=== PATIENT | male | born 1945 | race Caucasian/White ===

== ENCOUNTER 2016-11-10 12:54 | Emergency (ER) | payer MEDICARE, OTHER ==
[2016-11-10 13:39] VITALS: BP 150/76; TEMP 96.9; O2SAT 97
--- NOTE | 2016-11-10 14:31 | RAD ---
EXAM DESCRIPTION: X-RAY Lumbar Spine - Five views CLINICAL HISTORY: Mid and lower back pain of acute onset COMPARISON: None. TECHNIQUE: Five views of the lumbar spine. FINDINGS: There is no loss of the vertebral body height. There is mild reduction in the intervertebral disc space heights at L4/L5 and L5/S1 levels. Note is made of mild bilateral facet arthropathy at these 2 levels. These findings are suggestive of underlying degenerative change. The paravertebral soft tissues are unremarkable. There is no spondylolisthesis or spondylolysis. The lumbosacral junction is unremarkable. The bilateral neural foraminae are widely patent. IMPRESSION: Degenerative changes in the lower lumbar spine, as described above. Electronically signed by: Gareth Torres MD 11/10/2016 14:29
--- NOTE | 2016-11-10 14:33 | RAD ---
EXAM DESCRIPTION: X-RAY Thoracic Spine CLINICAL HISTORY: Acute mid and low back pain. COMPARISON: None. TECHNIQUE: 3.0 views of the thoracic spine. FINDINGS: There is no loss of the vertebral body height. Intervertebral disc spaces in the thoracic spine are relatively well maintained Note is made of anterior and posterior osteophyte formation along with reduction in the intervertebral disc space height at C5/C6 and C6/C7 levels suggestive of underlying degenerative change in the evaluated lower cervical spine. The paravertebral soft tissues are unremarkable. The cervicothoracic and the thoracolumbar junctions are intact. IMPRESSION: Unremarkable thoracic spine. Note is made of anterior and posterior osteophyte formation along with reduction in the intervertebral disc space height at C5/C6 and C6/C7 levels suggestive of underlying degenerative change in the evaluated lower cervical spine. Electronically signed by: Gareth Torres MD 11/10/2016 14:31
--- NOTE | 2016-11-10 16:51 | ED.PDOC ---
History of Present Illness - General Chief Complaint: Back Pain or Injury Stated Complaint: left sided back pain Time Seen by Provider: 11/10/16 13:09 Source: patient, RN notes reviewed, Vital Signs reviewed - History of Present Illness Initial Comments: This 71 y/o gentleman started having back pain 2 days ago. It is at the bottom of his thoracic spine. He denies any injury. He denies any dysuria. It hurts with movement, but it feels very deep to him. Timing/Duration: getting worse, other - 2 days Quality/Severity: moderate, sharpness Back Pain Location: paraspinous muscles Method of Injury/Prior Injury: unknown Improving Factors: rest Worsening Factors: movement Associated Symptoms: denies symptoms Allergies/Adverse Reactions: Allergies Penicillins Allergy (Verified 11/10/16 13:39) Home Medications: Ambulatory Orders Ascorbic Acid [Vitamin C] 1,000 mg PO DAILY 08/22/14 Aspirin [Baby Aspirin] 81 mg PO BID 08/22/14 Carvedilol 12.5 mg PO BID 08/22/14 Lisinopril [Prinivil] 5 mg PO DAILY 08/22/14 Simvastatin 40 mg PO BEDTIME 08/22/14 Naproxen [Naprosyn] 500 mg PO BID #30 tab 11/10/16 Omeprazole 20 mg PO DAILY 11/10/16 tiZANidine [Zanaflex] 4 mg PO TID PRN #30 tab 11/10/16 Review of Systems - Review of Systems Constitutional: States: no symptoms reported EENTM: States: no symptoms reported Respiratory: States: no symptoms reported Cardiology: States: no symptoms reported Gastrointestinal/Abdominal: States: no symptoms reported Genitourinary: States: no symptoms reported Musculoskeletal: States: muscle pain Skin: States: no symptoms reported Neurological: States: no symptoms reported Endocrine: States: no symptoms reported Hematologic/Lymphatic: States: no symptoms reported Unable to Obtain Due To: condition Past Medical History (General) - Patient Medical History Hx Cardiac Disorders: Yes Hx Hypertension: Yes Hx Diabetes: No Surgical History: coronary bypass surgery - Vaccination History Hx Influenza Vaccination: Yes Hx Pneumococcal Vaccination: Yes - Social History Hx Tobacco Use: No Family Medical History - Family History Father Family History: Unknown Living Status: Physical Exam - Physical Exam General Appearance: Alert, No apparent distress - unless he moves certain directions Eyes, Ears, Nose, Throat Exam: normal ENT inspection Cardiovascular/Respiratory: regular rate, rhythm, no M/R/G, normal peripheral pulses, no JVD, normal breath sounds, no respiratory distress Gastrointestinal/Abdominal: normal bowel sounds, non tender, soft, no organomegaly, no pulsatile mass Back Exam: no vertebral tenderness, muscle spasm - left paravertebral from T10 to L2 Extremity Exam: no evidence of injury, normal range of motion, no pedal edema Neurologic: no motor/sensory deficits, alert, normal mood/affect, oriented x 3 Skin Exam: normal color, warm/dry Progress - Results/Orders Results/Orders: 11/10/16 13:35 Temperature 96.9 F L Pulse Rate [ 87 Right Brachial] Respiratory 20 Rate Blood Pressure 150/76 [Right Arm] O2 Sat by Pulse 97 Oximetry Laboratory Results Urine Color Yellow (Yellow) 11/10/16 14:36 Urine Appearance Clear (Clear) 11/10/16 14:36 Urine pH 6.5 (4.5-7.8) 11/10/16 14:36 Ur Specific [place] 1.010 (1.005-1.030) 11/10/16 14:36 Urine Protein Negative mg/dL 11/10/16 14:36 Urine Glucose (UA) Negative mg/dL (Negative) 11/10/16 14:36 Urine Ketones Negative mg/dL (NEGATIVE) 11/10/16 14:36 Urine Blood Trace-intact (Negative) H 11/10/16 14:36 Urine Nitrite Negative 11/10/16 14:36 Urine Bilirubin Negative (NEGATIVE) 11/10/16 14:36 Urine Urobilinogen 0.2 mg/dL (0.2-1.0) 11/10/16 14:36 Ur Leukocyte Esterase Negative (Negative) 11/10/16 14:36 Urine RBC 1-3 /hpf 11/10/16 14:36 Urine WBC 0-1 /hpf 11/10/16 14:36 Ur Epithelial Cells 0 /hpf 11/10/16 14:36 Urine Bacteria 0 11/10/16 14:36 - EKG/XRAY/CT XRAY: t-spine, l-spine Xray Comments: No acute process Departure - Departure Clinical Impression: Muscle spasm of back Time of Disposition: 16:59 Disposition: Discharge to Home or Self Care Condition: Excellent Departure Forms: ED Discharge - Pt. Copy, Patient Portal Self Enrollment Instructions: DI for Low Back Pain Diet: resume usual diet Prescriptions: Naproxen [Naprosyn] 500 mg PO BID #30 tab tiZANidine [Zanaflex] 4 mg PO TID PRN #30 tab PRN Reason: Muscle Spasms Home Medications: Ambulatory Orders Ascorbic Acid [Vitamin C] 1,000 mg PO DAILY 08/22/14 Aspirin [Baby Aspirin] 81 mg PO BID 08/22/14 Carvedilol 12.5 mg PO BID 08/22/14 Lisinopril [Prinivil] 5 mg PO DAILY 08/22/14 Simvastatin 40 mg PO BEDTIME 08/22/14 Naproxen [Naprosyn] 500 mg PO BID #30 tab 11/10/16 Omeprazole 20 mg PO DAILY 11/10/16 tiZANidine [Zanaflex] 4 mg PO TID PRN #30 tab 11/10/16
== END 2016-11-10 17:14 | disposition home or self-care (01) ==
LOC: ER 12:54
DX: M62.830 Muscle spasm of back (principal); I10 Essential (primary) hypertension; Z79.82 Long term (current) use of aspirin; Z79.899 Other long term (current) drug therapy; Z88.0 Allergy status to penicillin; Z95.1 Presence of aortocoronary bypass graft

== ENCOUNTER → 2017-01-07 | Outpatient (CLI) | payer MEDICARE, OTHER | LOC: GMAB 10:26 | PROVIDERS: ATTEND Family Medicine | DX: I10 Essential (primary) hypertension (principal); Z12.5 Encounter for screening for malignant neoplasm of prostate | CPT/HCPCS: 84443; G0103 ==

== ENCOUNTER → 2018-01-13 | Outpatient (CLI) | payer MEDICARE, OTHER | LOC: GMAB 10:26 | PROVIDERS: ATTEND Family Medicine | DX: I10 Essential (primary) hypertension (principal); Z12.5 Encounter for screening for malignant neoplasm of prostate | CPT/HCPCS: 84443; G0103 ==

== ENCOUNTER → 2019-04-14 | Outpatient (CLI) | payer MEDICARE, OTHER | LOC: GMAE 10:30 | PROVIDERS: ATTEND Family Medicine | DX: I10 Essential (primary) hypertension (principal); E78.2 Mixed hyperlipidemia ==

== ENCOUNTER → 2020-04-27 | Outpatient (CLI) | payer MEDICARE, OTHER | LOC: YCFC.O 08:45 | PROVIDERS: ATTEND Family Medicine | DX: E78.5 Hyperlipidemia, unspecified (principal); I10 Essential (primary) hypertension; R53.83 Other fatigue; Z12.5 Encounter for screening for malignant neoplasm of prostate | CPT/HCPCS: 36415; 80053; 80061; 81001; 84443; 85025; G0103 ==